=== PATIENT | female | born 1960 | race Caucasian/White ===

== ENCOUNTER 2016-06-15 10:00 | Outpatient (CLI) | payer OTHER, BC ==
[~2016-06-15 10:00] MED LIST: ESCITALOPRAM OX10 MG PO; IBUPROFEN400 MG PO; LOVASTATIN40 MG PO
--- NOTE | 2016-06-15 12:38 | DIAGNOSTIC IMAGING REPORT ---
PROCEDURE: MG BILATERAL SCREENING W/CAD INDICATION: SCREENING TECHNIQUE: Bilateral CC and MLO digital views. COMPARISON: Mammograms 01/06/2015, 12/20/2011 and 01/03/2008. FINDINGS: Computer-aided detection applied. Mild dense. 5 mm density in the lateral right breast, anterior third. No suspicious microcalcifications. IMPRESSION: 1. 5 mm density in the right breast, lateral anterior third. Recommend additional views and ultrasound RESULT CODE: 0- Incomplete; needs additional evaluation. A. A negative report should not delay biopsy if a dominant or clinically suspicious mass is present. 10-15% of cancers are not identified by x-ray. B. A negative report may reinforce clinical impression. C. Adenosis and dense breasts may obscure an underlying neoplasm. D. False positive reports average 6-10%. E.. A yearly screening mammogram is recommended. A reminder letter will be scheduled.
== END 2016-06-15 23:00 ==
LOC: MAM SRH 10:00
DX: Z12.31 Encounter for screening mammogram for malignant neoplasm of breast (principal)

== ENCOUNTER → 2016-06-22 | Outpatient (CLI) | payer OTHER, BC ==
--- NOTE | 2016-06-22 15:09 | DIAGNOSTIC IMAGING REPORT ---
PROCEDURE: MG UNILATERAL DIAG-RT W/CAD INDICATION: Follow-up right breast nodule. TECHNIQUE: True lateral digital view of the right breast. In addition, spot compression CC and MLO views were obtained of the lower outer right breast ( region of clinical concern). Finally, high-resolution right breast ultrasound was performed (18 mHz). COMPARISON: Comparison is made to screening mammogram studies (06/15/2016, 01/06/2015, 12/20/2011. FINDINGS: MAMMOGRAM: Computer-aided detection applied. Confirmation of a 85 mm ovoid nodule in the lower outer right breast (anterior third) BREAST ULTRASOUND: There is a 5 mm ovoid simple cyst in the lower outer right breast which corresponds to the mammographic nodule. IMPRESSION: 1. 5 mm simple cyst in the lower outer right breast which accounts for the mammographic nodule. 2. Otherwise negative mammogram and right breast ultrasound. RESULT CODE: 2- Benign finding(s). A. A negative report should not delay biopsy if a dominant or clinically suspicious mass is present. 10-15% of cancers are not identified by x-ray. B. A negative report may reinforce clinical impression. C. Adenosis and dense breasts may obscure an underlying neoplasm. D. False positive reports average 6-10%. E.. A yearly screening mammogram is recommended. A reminder letter will be scheduled.
== END ==
LOC: MAM SRH 06-20 08:38
DX: R92.2 Inconclusive mammogram (principal)